=== PATIENT | female | born 1940 | race Caucasian/White ===

== ENCOUNTER 2016-08-28 07:08 | Outpatient (CLI) | payer MEDICARE ==
[~2016-08-28] VITALS: Ht 165.1 cm; Wt 81.6 kg
[2016-08-28] VITALS (11 sets, daily range): BP systolic 130–204; BP diastolic 71–115
[2016-08-28] MEDS ORDERED: LACT1CAP25 PO (07:56)
[2016-08-28] MEDS ORDERED: WARF2.5T7 PO (07:56)
[2016-08-28] MEDS ORDERED: ASPI81TA2 PO (07:56)
[2016-08-28] MEDS ORDERED: CYAN500T PO (07:56)
[2016-08-28] MEDS ORDERED: WARF5TAB7 PO (07:56)
[2016-08-28] MEDS ORDERED: MULT-681 PO (07:56)
[2016-08-28] MEDS ORDERED: MAGN250T5 PO (07:56)
[2016-08-28] MEDS ORDERED: ACET325T21 PO (07:56)
[2016-08-28 08:00] LABS: CALCIUM 9.4 mg/dL (8.5-10.1); CREATININE 0.7 mg/dL (0.6-1.0); GFR 81.6
[2016-08-28] MEDS ORDERED: IOHEXOL 300 MG/ML 100ML VIAL. ONE ×2 (08:07→08:12)
[2016-08-28 08:09] LABS: BASO # 0.1 x10^3/uL (0.0-0.2); BASO % 1 % (0-3); EOS % 2 % (0-3); HEMATOCRIT 42.9 % (36.0-47.0); HEMOGLOBIN 13.9 g/dL (12.0-15.5); LYMPH # 2.2 x10^3/uL (1.0-4.8); LYMPH % 37 % (24-48); MEAN CORPUSCULAR HEMOGLOBIN 29 pg (25-35); MEAN CORPUSCULAR HGB CONC 32 g/dL (31-37); MEAN CORPUSCULAR VOLUME 89 fL (79-100); MONO % 9 % (0-9); NEUT % 51 % (31-73); PLATELET COUNT 264 x10^3/uL (140-400); RED BLOOD COUNT 4.85 x10^6/uL (3.50-5.40); RED CELL DISTRIBUTION WIDTH 14.6 % (11.5-14.5); WHITE BLOOD COUNT 6.1 x10^3/uL (4.0-11.0)
[2016-08-28] MEDS ORDERED: LIDOCAINE 1% / SOD BICARB 8.4% 20 ML VIAL. IJ ONE ×2 (08:12→09:15)
[2016-08-28] MEDS ORDERED: IODIXANOL 320MG/ML 50ML VIAL. ONE (08:12)
[2016-08-28] MEDS ORDERED: HEPARIN for ARTERIAL LINE 1,500 ML ONE (08:13)
[2016-08-28] MEDS ORDERED: IODIXANOL 320 MG/ML 100 ML VIAL. ONE (08:13)
[2016-08-28 08:26] LABS: INR 1.5 (0.8-1.1); PROTHROMBIN TIME PATIENT 17.2 SEC (11.7-14.0)
[2016-08-28] MEDS ORDERED: FENTANYL PF 100 MCG/2 ML VIAL. ONE (08:51)
[2016-08-28] MEDS ORDERED: MIDAZOLAM HCL 2 MG/2 ML VIAL. ONE (08:51)
[2016-08-28] MEDS ORDERED: IOHEXOL 300 MG/ML 100ML VIAL. IART ONE (09:15)
[2016-08-28] MEDS ORDERED: MIDAZOLAM HCL 2 MG/2 ML VIAL. IV ONE (09:15)
[2016-08-28] MEDS ORDERED: FENTANYL PF 100 MCG/2 ML VIAL. IV ONE (09:15)
[2016-08-28] MEDS ORDERED: IODIXANOL 320 MG/ML 100 ML VIAL. IART ONE (09:15)
[2016-08-28] MEDS ORDERED: HEPARIN for IV BOLUS 10,000 UNIT/10 ML VIAL. ONE (09:56)
[2016-08-28] MEDS ORDERED: HEPARIN for IV BOLUS 10,000 UNIT/10 ML VIAL. IV ONE (10:00)
[2016-08-28] MEDS ORDERED: CLOPIDOGREL BISULFATE 75 MG TABLET ONE (11:55)
[2016-08-28] MEDS ORDERED: CLOPIDOGREL BISULFATE 75 MG TABLET PO ONE (12:00)
[2016-08-28] MEDS ORDERED: CLOP75TA PO (12:11)
--- NOTE | 2016-08-28 12:20 | PDOC ---
MODERATE SEDATION ASSESSMENT RISKS/ALTERNATIVES Risks/Alternatives Risks and alternatives of this type of sedation and procedure discussed with: RISK/ALTERNATIVES: Patient H & P ON CHART H & P H & P on chart and reviewed for co-morbid conditions and appropriate labs. H&P ON CHART: Yes STATUS PREG STATUS ASSESSED: N/A MEDS/ALLERGIES REVIEWED Meds/Allergies Reviewed Medications and Allergies including time and route of recently administered narcotics and sedatives. MEDS/ALLERGIES REVIEWED: Yes ASA RATING ASA RATING: II AIRWAY ASSESSMENT Airway Assessment Airway patency, oral function limitations, presence of caps, crowns, dentures, partials, and ability to extend neck assessed. AIRWAY ASSESSMENT: Yes MALLAMPATI SCORE MALLAMPATI SCORE: III PRE-SEDATION ASSESSMENT PRE-SEDATION ASSESSMENT: Yes LIYAH HENDRICKS MD Aug 28, 2016 12:20
--- NOTE | 2016-08-28 12:46 | PDOC1 ---
History and Physical Date of Procedure Date of Admission 08/28/16 Procedure Procedure Abdominal aortogram with selective left leg angio +/- intervention Indication Indication 75 YO female with known PAD, s/p bilateral lower extremity gypass graft procedures. Now with recurrent left calf claudication and abnormal outside non- invasive study. Past Medical History Past Medical History See Nursing Pre procedure PMH Past Surgical History Past Surgical History See Nursing Pre procedure PSH Current Medications Current Medications Current Medications Iohexol (Omnipaque 300 Mg/ml) 100 ml STK-MED ONCE .ROUTE ; Start 08/28/16 at 08: 07; Stop 08/28/16 at 08:08; Status DC Lidocaine/Sodium Bicarbonate (Buffered Lidocaine 1%) 20 ml STK-MED ONCE IJ ; Start 08/28/16 at 08:12; Stop 08/28/16 at 08:13; Status DC Iodixanol (Visipaque 320) 50 ml STK-MED ONCE .ROUTE ; Start 08/28/16 at 08:12; Stop 08/28/16 at 08:13; Status DC Iohexol 100 ml 100 ml STK-MED ONCE .ROUTE ; Start 08/28/16 at 08:12; Stop at 08:13; Status DC Heparin Sodium/ Sodium Chloride 1,500 ml @ As Directed STK-MED ONCE .ROUTE ; Start 08/28/16 at 08:13; Stop 08/28/16 at 08:14; Status DC Iodixanol (Visipaque 320) 100 ml STK-MED ONCE .ROUTE ; Start 08/28/16 at 08:13; Stop 08/28/16 at 08:14; Status DC Midazolam HCl (Versed) 2 mg STK-MED ONCE .ROUTE ; Start 08/28/16 at 08:51; Stop 08/28/16 at 08:52; Status DC Fentanyl Citrate (Fentanyl 2ml Vial) 100 mcg STK-MED ONCE .ROUTE ; Start at 08:51; Stop 08/28/16 at 08:52; Status DC Heparin Sodium/ Sodium Chloride 1,000 unit 1X ONCE IART Last administered on t 11:40; Start 08/28/16 at 09:15; Stop 08/28/16 at 09:16; Status DC Lidocaine/Sodium Bicarbonate (Buffered Lidocaine 1%) 20 ml 1X ONCE IJ Last administered on 08/28/16 09:15; Start 08/28/16 at 09:15; Stop 08/28/16 at 09:16 ; Status DC Midazolam HCl (Versed) 2 mg 1X ONCE IV Last administered on 08/28/16 11:41; Start 08/28/16 at 09:15; Stop 08/28/16 at 09:16; Status DC Fentanyl Citrate (Fentanyl 2ml Vial) 100 mcg 1X ONCE IV Last administered on 11:41; Start 08/28/16 at 09:15; Stop 08/28/16 at 09:16; Status DC Iohexol (Omnipaque 300 Mg/ml) 100 ml 1X ONCE IART Last administered on 11:40; Start 08/28/16 at 09:15; Stop 08/28/16 at 09:16; Status DC Iodixanol (Visipaque 320) 100 ml 1X ONCE IART Last administered on 08/28/16 11:40; Start 08/28/16 at 09:15; Stop 08/28/16 at 09:16; Status DC Heparin Sodium (Porcine) 10,000 unit STK-MED ONCE .ROUTE ; Start 08/28/16 at 09: 56; Stop 08/28/16 at 09:57; Status DC Heparin Sodium (Porcine) 5,000 unit 1X ONCE IV Last administered on 08/28/16 11:43; Start 08/28/16 at 10:00; Stop 08/28/16 at 10:02; Status DC Clopidogrel Bisulfate (Plavix) 75 mg STK-MED ONCE .ROUTE ; Start 08/28/16 at 11: 55; Stop 08/28/16 at 11:56; Status DC Clopidogrel Bisulfate (Plavix) 600 mg 1X ONCE PO Last administered on 12:06; Start 08/28/16 at 12:00; Stop 08/28/16 at 12:01; Status DC Active Scripts Active Reported Clopidogrel (Clopidogrel Bisulfate) 75 Mg Tablet 1 Tab PO DAILY 7 Days Multi-Day Plus Minerals Tablet (Multivitamin-Min/Iron/FA/Vit K) 1 Each Tablet 1 Each PO DAILY Probiotic (Lactobacillus Combination No.4) 1 Each Capsule 1 Each PO DAILY Vitamin B-12 (Cyanocobalamin (Vitamin B-12)) 500 Mcg Tablet 500 Mcg PO DAILY Magnesium (Magnesium Oxide) 250 Mg Tablet 250 Mg PO DAILY Acetaminophen 325 Mg Tablet 325 Mg PO PRN PRN Warfarin Sodium 5 Mg Tablet 1 Tab PO QWF Warfarin Sodium 2.5 Mg Tablet 2.5 Mg PO [id number] Aspirin 81 Mg Tab.chew 1 Tab PO DAILY Allergies Allergies: Coded Allergies: Penicillins (Unverified Allergy, Intermediate, Hives, 08/28/16) codeine (Unverified Adverse Reaction, Mild, Nausea, 08/28/16) Physical Exam Vital Signs Vital Signs Date Time Temp Pulse Resp B/P Pulse Ox O2 Delivery O2 Flow Rate FiO2 08/28/16 11:45 62 16 100 Room Air 08/28/16 08:05 174/93 08/28/16 08:00 97.9 97.9 Lungs: Clear to auscultation Heart: Other (Irregularly irregular rate/thythm) Psych/Mental Status: Mental status NL Vascular 2+ bilateral [employer] pulses. Left foot warm---Nonpalpable left DP and PT pulses Assessment Assessment PAD with recurrent left calf claudication, and with outside noninvasive study c/ w stricture within left fem-pop bypass graft Problems: Plan Plan Diagnostic arteriogram +/- intervention, as indicated LIYAH HENDRICKS MD Aug 28, 2016 12:46
--- NOTE | 2016-08-28 12:54 | PDOC ---
Exam Email Marketing Executive Email Marketing Executive Roberto Farm Advisor Farm Advisor B Cates Pre-Procedure Diagnosis Pre-Procedure Diagnosis PAD. Abnormal outside noninvasive study. Recurrent left calf claudication. Probable significant stenosis within left COIL TESTER-below knee popliteal vein bypass graft. Post-Procedure Diagnosis Post-Procedure Diagnosis Same. 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 High grade stenosis at distal left pop, involving origins of AT and TPT. Procedure Performed Procedure Performed Abdominal aortogral. Selective left leg angio. Cutting [employer]UC[employer]AR PLANT EQUIPMENT OPERATOR followed by DCB graft stricture----Viabahn stent placement for elastic recoil. NUCLEAR PLANT EQUIPMENT OPERATOR at left pop bifurcation thru proximal AT and proximal TPT Type of Anesthesia Type of Anesthesia Local + Mod sedation Estimated Blood Loss EBL: 50 cc Condition of Patient Condition of Patient Stable. No apparent complication. Disposition Disposition Home from [facility] post recovery, if no bleeding or other issues. Resume home Coumadin today. Plavix load today, then daily for 1 week. F/u with Dr Jay. Full report to follow. LIYAH HENDRICKS MD Aug 28, 2016 12:54
--- NOTE | 2016-08-30 06:34 | RAD ---
Abdominal aortogram with selective left lower extremity arteriogram SKEINS YARN EXAMINER followed by stenting of left common femoral-below knee popliteal vein bypass graft SKEINS YARN EXAMINER distal left popliteal artery through proximal anterior tibial artery SKEINS YARN EXAMINER distal left popliteal artery through proximal tibioperoneal trunk Indication: 75-year-old female with known PAD, status post bilateral lower extremity peripheral bypass grafts. Left calf claudication. Abnormal noninvasive study, suggesting high-grade stricture within proximal segment of her left femoral-popliteal bypass graft. Diagnostic angiography, with possible intervention, has been requested by vascular surgery. Fluoroscopy time: 43.1 minutes Kerma-area Product: 89850.2 [id number] Contrast material: 55 cc Omnipaque 300. 25 cc Visipaque 320. Anesthesia: 145 minutes moderate sedation was provided utilizing a total of 4 mg Versed and 200 mcg fentanyl, IV. The patient was appropriately monitored by a qualified independent observer throughout the time of moderate sedation. Consent: The procedure was explained in its entirety to the patient and/or the patient's designated medical center representative by a member of the treatment team. This included a discussion of risks and benefits and commonly accepted alternatives to the procedure, as well as expected consequences of no treatment at all. Discussion of risks included, but was not limited to, those that are most frequent and those that are rare, but possibly severe or life-threatening, as well as the possibility of unforeseen complications. Sterility: All elements of maximal sterile barrier technique were utilized, including cap, mask, sterile gown, sterile gloves, large sterile sheet, appropriate hand hygiene, and 2% chlorhexidine for cutaneous antisepsis. Procedure: Informed consent was obtained from the patient. She was placed supine on the angiography table. Preliminary ultrasound examination of right groin revealed wide patency of right common femoral artery, which was documented with a single hard copy ultrasound image. Right groin was then prepped and draped in the usual sterile fashion, utilizing all elements of maximal sterile barrier technique, as described above. Moderate sedation was provided with IV Versed and fentanyl. Using aseptic technique, local anesthesia, direct ultrasound guidance, and the micropuncture system, a 5 Cuban right common femoral artery sheath was successfully introduced. Abdominal aortogram: A 5 Cuban Omni Flush catheter was advanced through the right groin sheath and was positioned within suprarenal abdominal aorta. Omnipaque 300 was injected and abdominal aortogram DSA images were obtained. Findings: Distal infrarenal abdominal aorta shows moderate atherosclerotic plaquing, without significant stricture and without aneurysmal dilatation. Right renal artery is widely patent. Moderate narrowing is present at origin of left renal artery. Celiac trunk and SMA are patent. ANGELINA is also patent, but with high-grade origin stenosis. Oblique pelvis injections: The Omni Flush catheter was withdrawn into terminal aorta. Omnipaque 300 was again injected and DSA images were obtained over pelvis in the SLOVENIAN and THOMSON projections. Findings: No significant stenosis is identified within right common iliac artery or within previously stented left common iliac artery. At least moderate narrowing is identified within proximal segments of hypogastric arteries, bilaterally. No hemodynamically significant external iliac artery stenosis is demonstrated, bilaterally. Left lower extremity arteriogram: The 5 Cuban Omni Flush catheter was exchanged for a 4 Cuban angled glide catheter, which was advanced across aortic bifurcation over a Glidewire and was initially positioned within contralateral left common femoral artery. Visipaque was injected and DSA images were obtained over groin and proximal thigh. The angled glide catheter was then exchanged for a quick cross catheter, which was successfully advanced into small segment of the patient's left common femoral-below knee popliteal vein bypass graft. Dilute Visipaque was injected and DSA images were obtained from proximal thigh through knee. The quick cross catheter was then advanced into distal segment of the bypass graft, at the level of knee joint. Dilute Visipaque was again injected and DSA images were obtained over the proximal left calf. Following left lower extremity arterial interventions, as described below, additional dilute Visipaque was injected into distal segment of the bypass graft, and DSA images were obtained from knee through foot. Findings: Postoperative left common femoral artery and left deep femoral artery are widely patent. The patient's left common femoral-below knee popliteal vein bypass graft, including proximal and distal anastomoses, is widely patent, apart from a focal, short segment, severe to critical stricture at the level of proximal thigh. A focal, severe stenosis involves most distal tyonek left popliteal artery and origin of anterior tibial artery and origin of tibioperoneal trunk. Left tibial trifurcation is otherwise widely patent, with good three-vessel distal runoff to foot/ankle. Endovascular treatment of the proximal graft stricture and popliteal bifurcation lesions was considered indicated. SKEINS YARN EXAMINER/stent focal stricture within proximal left common femoral to below-knee popliteal vein bypass graft: The quick cross catheter, previously positioned within the patient's left common femoral to below-knee popliteal vein bypass graft was removed over a [employer] advantage guidewire. The 5 Cuban right groin sheath was exchanged for a 6 Cuban Eben sheath, which was advanced across aortic bifurcation into contralateral left common femoral artery. The quick cross catheter was reintroduced over the advantage wire into mid segment of the bypass graft. The quick cross catheter was then removed over a grand slam microguidewire. 5000 units heparin was given bolus IV. Utilizing fluoroscopic guidance and road mapping technique, a 3 mm x 15 mm cutting SKEINS YARN EXAMINER balloon was advanced through the Eben sheath over the grand slam wire, and was utilized to perform cutting balloon dilatation of the focal stricture within the bypass graft graft, to a peak pressure of 10 pako. The 3 mm cutting SKEINS YARN EXAMINER balloon was then exchanged over the grand slam wire for a 4 mm x 40 mm [employer]'s paclitaxel-coated SKEINS YARN EXAMINER balloon, which was gently inflated across the lesion to a peak pressure of 6 pako for 3 minutes. Immediate post angioplasty DSA images revealed near complete resolution of the stricture. However, repeat images obtained following subsequent below knee arterial intervention revealed moderate elastic recoil. Therefore, percutaneous stenting was considered indicated. A 6 mm x 50 mm Viabahn covered stent was advanced through the Eben sheath over the grand slam wire and was successfully deployed across the recurrent stenosis. This covered stent was then postdilated utilizing a 5 mm SKEINS YARN EXAMINER balloon. Completion images revealed complete resolution of the previously present graft stricture, with brisk antegrade flow, and without evidence of complicating thrombosis or dissection. SKEINS YARN EXAMINER at distal popliteal artery bifurcation: Following endovascular treatment of the focal graft stricture, attention was turned to made the distal popliteal artery severe stenosis, extending into origins of anterior tibial artery and tibioperoneal trunk. A 0.018 inch quick cross catheter was inserted through the Eben sheath and was successfully advanced across the severe distal popliteal artery stenosis into mid left anterior tibial artery over a grand slam microguidewire. Satisfactory intraluminal position was confirmed with a contrast injection. The quick cross catheter was then removed over the grand slam wire, and was then reintroduced through the Eben sheath and was successfully directed across the severe distal left popliteal artery stenosis into mid left posterior tibial artery over a second grand slam guidewire. Again, satisfactory intraluminal position was confirmed with a contrast injection. The quick cross catheter was then removed over the grand slam wire. Following IV bolus administration of an additional 2000 units heparin, a 3 mm x 40 mm Cordis chocolate SKEINS YARN EXAMINER balloon was advanced through the Eben sheath over one of the grand slam wires, and was utilized to perform balloon dilatation of distal left popliteal artery through proximal anterior tibial artery to a peak pressure of 9 pako for 3 minutes. The chocolate SKEINS YARN EXAMINER balloon was then deflated and removed. This balloon was then reintroduced through the Ancel sheath over the other grand slam wire and was utilized to perform balloon dilatation of distal left popliteal artery through mid tibioperoneal trunk, again to a peak pressure of 9 pako for 3 minutes. Visipaque was then injected through the Eben sheath and completion DSA images were obtained which revealed widely patent left popliteal artery bifurcation, without complicating dissection, thrombosis, or distal embolization. Patient tolerated the procedure well without apparent complication. Hemostasis was achieved at the right groin puncture site utilizing the Angio-Seal system. Impression: 1. Focal severe to critical stricture within proximal segment of the patient's left common femoral to below-knee popliteal vein bypass graft, for which cutting balloon angioplasty, paclitaxel-coated balloon angioplasty, and Viabahn stenting was performed, as described. 2. Focal severe stenosis at distal left popliteal artery, extending to origins of anterior tibial artery and tibioperoneal trunk, for which successful, balloon angioplasty was performed, as described. 3. Moderate distal aortic plaquing, without stricture or aneurysm. No hemodynamically significant iliac inflow stenosis, bilaterally--indwelling left common iliac artery stent remains patent. Widely patent left deep femoral artery. Satisfactory three-vessel below knee left distal runoff.
== END 2016-08-28 15:17 | disposition home or self-care (01) ==
LOC: INTRAD 07:08
PROVIDERS: ATTEND Specialist
DX: I73.9 Peripheral vascular disease, unspecified (principal); Z95.1 Presence of aortocoronary bypass graft; I74.3 Embolism and thrombosis of arteries of the lower extremities; I48.91 Unspecified atrial fibrillation; Z98.51 Tubal ligation status; Z90.710 Acquired absence of both cervix and uterus
CPT/HCPCS: 36415; 75625; 75710; 75774; 76937; 80048; 85027; 85610; C1713; C1725; C1760; C1769; C1892; C1894; C2623; G0269; J2250; J3010; Q9967